=== PATIENT | male | born 1945 | race African-American/Black ===

== ENCOUNTER 2022-05-13 17:40 | Inpatient (IN) | payer BC ==
[~2022-05-13] VITALS: Ht 188 cm; Wt 154.2 kg
[2022-05-13] MEDS ORDERED: FUROSEMIDE 40MG/4ML VIAL IV ONE (18:45)
[2022-05-13 18:56] LABS: BASOPHILS % 0.6 % (0.0-2.0); EOSINOPHILS % 0.4 % (0.0-5.0); HEMATOCRIT. 35.7 % (42.0-52.0); HEMOGLOBIN. 11.6 g/dL (14.0-18.0); MEAN CORPUSCULAR HEMOGLOBIN 23.7 pg (28.0-32.0); MEAN CORPUSCULAR VOLUME 72.6 fL (80.0-94.0); MEAN PLATELET VOLUME 9.4 fl (7.4-10.4); MONOCYTES % 11.9 % (2.0-8.0); NEUTROPHILS % 62.1 % (40.0-76.0); PLATELET 167 x1000/uL (130-400); RED BLOOD CELL COUNT 4.91 mill/uL (4.7-6.1); RED CELL DISTRIBUTION WIDTH 17.6 % (11.6-14.6)
[2022-05-13 19:05] LABS: CHLORIDE 105 mEq/L (98-107)
[2022-05-13] MEDS ORDERED: DEXTROSE 50% WATER 50ML SYRINGE IV ONE (20:00)
[2022-05-14 02:52] LABS: CLARITY URINE CLEAR (CLEAR); COLOR URINE YELLOW (YELLOW)
[2022-05-14 02:53] LABS: KETONES URINE NEGATIVE (NEGATIVE); NITRITE URINE NEGATIVE (NEGATIVE); OCCULT BLOOD URINE TRACE (NEGATIVE); PROTEIN URINE 1+ (NEGATIVE)
[2022-05-14 02:54] LABS: LEUKOCYTE ESTERASE URINE NEGATIVE (NEGATIVE); UROBILINOGEN URINE 0.2 E.U./dL (0.2-1.0)
[2022-05-14 03:30] VITALS: BP 108/72
[2022-05-14] MEDS ORDERED: POTA-185 PO (03:52)
[2022-05-14] MEDS ORDERED: SACU1TAB7 PO (03:52)
[2022-05-14] MEDS ORDERED: ERGO1250 PO (03:52)
[2022-05-14] MEDS ORDERED: RIVA20TA PO (03:52)
[2022-05-14] MEDS ORDERED: FURO80TA3 PO (03:52)
[2022-05-14] MEDS ORDERED: CITA10TA88 PO (03:52)
[2022-05-14] MEDS ORDERED: AMI2 (03:52)
[2022-05-14] MEDS ORDERED: DEXTROSE 50% WATER 50ML SYRINGE IV PRN (05:15)
[2022-05-14] MEDS: INSULIN LISPRO 100 UNITS/ML SUBCUT SCH ×4 (05:35→21:00)
[2022-05-14] MEDS: BLOOD SUGAR DIAGNOSTIC STRIP TEST SCH ×4 (05:35→21:00)
[2022-05-14 08:00] VITALS: BP 117/73
[2022-05-14] MEDS ORDERED: FUROSEMIDE 40MG/4ML VIAL IVP SCH ×2 (09:00→17:00)
[2022-05-14 12:00] VITALS: BP 108/83
[2022-05-14 16:00] VITALS: BP 128/81
[2022-05-14] MEDS ORDERED: RIVAROXABAN 20 MG TABLET PO SCH (17:00)
[2022-05-14 17:04] LABS: HEMATOCRIT. 38.9 % (42.0-52.0); HEMOGLOBIN. 12.4 g/dL (14.0-18.0); MEAN CORPUSCULAR HEMOGLOBIN 23.4 pg (28.0-32.0); MEAN CORPUSCULAR VOLUME 73.3 fL (80.0-94.0); MEAN PLATELET VOLUME 9.5 fl (7.4-10.4); PLATELET 178 x1000/uL (130-400); RED BLOOD CELL COUNT 5.31 mill/uL (4.7-6.1); RED CELL DISTRIBUTION WIDTH 17.9 % (11.6-14.6)
[2022-05-14] MEDS: ENOXAPARIN 150MG/ML SYR SUBCUT SCH ×2 (17:55→22:01)
[2022-05-14 18:41] LABS: BG BASE EXCESS -3.3 mmol/L (-2.0-2.0); BG CARBOXYHEMOGLOBIN 1.2 % (0.5-1.5); BG DEOXYHEMOGLOBIN 7.5 % (0.0-5.0); BG FRACTION INSPIRED OXYGEN 21; BG HCO3 ACT 22.4 mmol/L (22.0-26.0); BG METHEMOGLOBIN 0.3 % (0.0-1.5); BG OXYGEN SATURATION 92.4 % (92.0-98.5); BG PCO2 42.4 mmHg (35.0-45.0); BG PO2 66.7 mmHg (75.0-100.0); BG SAMPLE SITE RIGHT BRACHIAL; BG TOTAL HEMOGLOBIN 13.6 g/dL (12.0-18.0); BG VENT MODE ROOM AIR
[2022-05-14 21:19] LABS: INR 1.6; PROTHROMBIN TIME 16.1 sec (9.6-11.0)
[2022-05-14 23:34] VITALS: BP 114/68
[2022-05-14 23:43] LABS: PLATELET ESTIMATE NORMAL
[2022-05-15 04:35] VITALS: BP 115/82
[2022-05-15] MEDS: BLOOD SUGAR DIAGNOSTIC STRIP TEST SCH ×4 (06:20→21:36)
[2022-05-15 06:31] LABS: BASOPHILS % 0.7 % (0.0-2.0); EOSINOPHILS % 1.1 % (0.0-5.0); HEMATOCRIT. 38.2 % (42.0-52.0); HEMOGLOBIN. 12.3 g/dL (14.0-18.0); LYMPHOCYTES % 20.2 % (20.0-50.0); MEAN CORPUSCULAR HEMOGLOBIN 23.2 pg (28.0-32.0); MEAN CORPUSCULAR VOLUME 72.2 fL (80.0-94.0); MEAN PLATELET VOLUME 9.9 fl (7.4-10.4); MONOCYTES % 11.3 % (2.0-8.0); NEUTROPHILS % 66.7 % (40.0-76.0); PLATELET 173 x1000/uL (130-400); RED CELL DISTRIBUTION WIDTH 17.7 % (11.6-14.6)
[2022-05-15 06:49] LABS: INR 1.4; PARTIAL THROMBOPLASTIN TIME 38.3 sec (23.4-31.0); PROTHROMBIN TIME 15.1 sec (9.6-11.0)
[2022-05-15] MEDS: INSULIN LISPRO 100 UNITS/ML SUBCUT SCH ×4 (07:35→21:00)
[2022-05-15 08:20] VITALS: BP 144/97
[2022-05-15] MEDS ORDERED: METOLAZONE 2.5MG TABLET PO SCH (09:00)
[2022-05-15] MEDS: AMIODARONE HCL 200 MG TABLET PO SCH (09:57)
[2022-05-15] MEDS: FUROSEMIDE 40MG/4ML VIAL IVP SCH ×2 (09:57→16:44)
[2022-05-15] MEDS: CITALOPRAM HYDROBROMIDE 10MG TABLET PO SCH (09:57)
[2022-05-15 12:00] VITALS: BP 111/66
[2022-05-15 14:32] LABS: HEPATITIS B SURFACE ANTIGEN NEGATIVE
[2022-05-15 16:00] VITALS: BP 127/70
[2022-05-15] MEDS: TAMSULOSIN HCL 0.4MG SR CAPSULE PO SCH (16:44)
[2022-05-15] MEDS: ENOXAPARIN 150MG/ML SYR SUBCUT SCH (18:00)
[2022-05-15 20:34] VITALS: BP 106/70
[2022-05-16] VITALS: BP 131/76
[2022-05-16 04:00] VITALS: BP 127/85
[2022-05-16] MEDS: ENOXAPARIN 150MG/ML SYR SUBCUT SCH ×2 (05:41→17:24)
[2022-05-16 06:49] LABS: BASOPHILS % 0.5 % (0.0-2.0); EOSINOPHILS % 0.7 % (0.0-5.0); HEMOGLOBIN. 12.3 g/dL (14.0-18.0); LYMPHOCYTES % 16.4 % (20.0-50.0); MEAN CORPUSCULAR HEMOGLOBIN 23.5 pg (28.0-32.0); MEAN CORPUSCULAR VOLUME 72.5 fL (80.0-94.0); MEAN PLATELET VOLUME 9.8 fl (7.4-10.4); MONOCYTES % 11.1 % (2.0-8.0); NEUTROPHILS % 71.3 % (40.0-76.0); PLATELET 184 x1000/uL (130-400); RED BLOOD CELL COUNT 5.24 mill/uL (4.7-6.1); RED CELL DISTRIBUTION WIDTH 17.7 % (11.6-14.6)
[2022-05-16] MEDS: BLOOD SUGAR DIAGNOSTIC STRIP TEST SCH ×4 (07:30→21:00)
[2022-05-16] MEDS: INSULIN LISPRO 100 UNITS/ML SUBCUT SCH ×4 (08:10→21:00)
[2022-05-16] MEDS ORDERED: LIDOCAINE HCL 1% 10 MG/ML 10ML VIAL ONE (08:16)
[2022-05-16] MEDS ORDERED: SODIUM BICARBONATE 4% (2.4MEQ) 5ML VIAL IV ONE (08:16)
[2022-05-16] MEDS: AMIODARONE HCL 200 MG TABLET PO SCH (10:23)
[2022-05-16] MEDS: CITALOPRAM HYDROBROMIDE 10MG TABLET PO SCH (10:23)
[2022-05-16] MEDS: FUROSEMIDE 40MG/4ML VIAL IVP SCH ×2 (10:23→17:24)
[2022-05-16] MEDS: TAMSULOSIN HCL 0.4MG SR CAPSULE PO SCH (10:24)
[2022-05-16 12:00] VITALS: BP 115/74
[2022-05-16 16:00] VITALS: BP 113/61
[2022-05-16 20:00] VITALS: BP 123/73
[2022-05-17] VITALS: BP 105/73
[2022-05-17 04:00] VITALS: BP 123/73
[2022-05-17 05:40] LABS: BASOPHILS % 0.4 % (0.0-2.0); EOSINOPHILS % 0.5 % (0.0-5.0); HEMATOCRIT. 38.6 % (42.0-52.0); HEMOGLOBIN. 12.5 g/dL (14.0-18.0); LYMPHOCYTES % 14.3 % (20.0-50.0); MEAN CORPUSCULAR HEMOGLOBIN 23.5 pg (28.0-32.0); MEAN CORPUSCULAR VOLUME 72.5 fL (80.0-94.0); MEAN PLATELET VOLUME 9.8 fl (7.4-10.4); MONOCYTES % 12.7 % (2.0-8.0); NEUTROPHILS % 72.1 % (40.0-76.0); PLATELET 176 x1000/uL (130-400); RED BLOOD CELL COUNT 5.33 mill/uL (4.7-6.1); RED CELL DISTRIBUTION WIDTH 17.8 % (11.6-14.6)
[2022-05-17] MEDS: ENOXAPARIN 150MG/ML SYR SUBCUT SCH (06:28)
[2022-05-17] MEDS: BLOOD SUGAR DIAGNOSTIC STRIP TEST SCH ×3 (07:40→17:24)
[2022-05-17 08:00] VITALS: BP 138/82
[2022-05-17] MEDS: INSULIN LISPRO 100 UNITS/ML SUBCUT SCH ×2 (08:10→13:10)
[2022-05-17] MEDS: TAMSULOSIN HCL 0.4MG SR CAPSULE PO SCH (08:57)
[2022-05-17] MEDS: FUROSEMIDE 40MG/4ML VIAL IVP SCH (08:58)
[2022-05-17] MEDS: CITALOPRAM HYDROBROMIDE 10MG TABLET PO SCH (08:58)
[2022-05-17] MEDS: AMIODARONE HCL 200 MG TABLET PO SCH (08:58)
[2022-05-17] MEDS ORDERED: FURO80TA3 PO (11:45)
[2022-05-17 12:00] VITALS: BP 122/88
[2022-05-17] MEDS ORDERED: FUROSEMIDE 40MG TABLET PO SCH (18:00)
== END 2022-05-17 18:23 | disposition home or self-care (01) | DRG 291 ==
LOC: ER 17:40 → EDBEDREQ 18:46 → MICUSO 05-14 01:47 → EDBEDREQ 05-14 01:52 → 7WST 05-14 03:32
PROVIDERS: ADMIT Internal Medicine; ATTEND Internal Medicine
PROC: 0W9G3ZZ Drainage of Peritoneal Cavity, Percutaneous Approach (ICD-10-PCS; principal; 2022-05-16)
DX: I13.0 Hypertensive heart and chronic kidney disease with heart failure and stage 1 through stage 4 chronic kidney disease, or unspecified chronic kidney disease (principal); I50.23 Acute on chronic systolic (congestive) heart failure; J96.00 Acute respiratory failure, unspecified whether with hypoxia or hypercapnia; I48.19 Other persistent atrial fibrillation; E44.1 Mild protein-calorie malnutrition; R18.8 Other ascites; N17.9 Acute kidney failure, unspecified; Z68.41 Body mass index [BMI] 40.0-44.9, adult; Z20.822 Contact with and (suspected) exposure to COVID-19; K74.60 Unspecified cirrhosis of liver; N18.9 Chronic kidney disease, unspecified; E11.649 Type 2 diabetes mellitus with hypoglycemia without coma; E11.22 Type 2 diabetes mellitus with diabetic chronic kidney disease; I50.82 Biventricular heart failure; I48.91 Unspecified atrial fibrillation; G47.33 Obstructive sleep apnea (adult) (pediatric); I49.3 Ventricular premature depolarization; E66.9 Obesity, unspecified; N40.0 Benign prostatic hyperplasia without lower urinary tract symptoms; Z79.899 Other long term (current) drug therapy
CPT/HCPCS: 36415; 36600; 49083; 71045; 74176; 76705; 76770; 80048; 80053; 81003; 82040; 82375; 82805; 82962; 83036; 83615; 83735; 83880; 84153; 84484; 85025; 86705; 86709; 86803; 87340; 87426; 88108; 93005; 93306; 94660; 99285; J1650; J1815; J1940; J3490; G0103

== ENCOUNTER 2022-06-08 05:44 | Inpatient (IN) | payer BC ==
[~2022-06-08] VITALS: Ht 188 cm; Wt 151.8 kg
[~2022-06-08 05:44] MED LIST: AMI2; CITA10TA88 PO; ERGO1250 PO; FURO80TA3 PO; POTA-185 PO; RIVA20TA PO; SACU1TAB7 PO
[2022-06-08 06:55] LABS: BASOPHILS % 0.5 % (0.0-2.0); EOSINOPHILS % 0.5 % (0.0-5.0); HEMATOCRIT. 38.3 % (42.0-52.0); HEMOGLOBIN. 12.4 g/dL (14.0-18.0); LYMPHOCYTES % 17.2 % (20.0-50.0); MEAN CORPUSCULAR HEMOGLOBIN 23.6 pg (28.0-32.0); MEAN CORPUSCULAR VOLUME 72.9 fL (80.0-94.0); MEAN PLATELET VOLUME 9.5 fl (7.4-10.4); MONOCYTES % 10.7 % (2.0-8.0); NEUTROPHILS % 71.1 % (40.0-76.0); PLATELET 200 x1000/uL (130-400); RED BLOOD CELL COUNT 5.26 mill/uL (4.7-6.1); RED CELL DISTRIBUTION WIDTH 17.9 % (11.6-14.6)
[2022-06-08 07:32] LABS: INR 1.6; PARTIAL THROMBOPLASTIN TIME 34.7 sec (23.4-31.0); PROTHROMBIN TIME 16.1 sec (9.6-11.0)
[2022-06-08 07:37] LABS: CHLORIDE 100 mEq/L (98-107)
[2022-06-08 10:57] LABS: CLARITY URINE CLEAR (CLEAR); COLOR URINE DARK YELLOW (YELLOW); KETONES URINE TRACE (NEGATIVE); LEUKOCYTE ESTERASE URINE NEGATIVE (NEGATIVE); NITRITE URINE NEGATIVE (NEGATIVE); OCCULT BLOOD URINE NEGATIVE (NEGATIVE); PROTEIN URINE 2+ (NEGATIVE); SPECIFIC GRAVITY URINE 1.023 (1.005-1.030)
[2022-06-08 23:15] VITALS: BP 152/89
[2022-06-09] VITALS: BP 152/89
[2022-06-09 04:00] VITALS: BP 99/66
[2022-06-09] MEDS ORDERED: FUROSEMIDE 40MG/4ML VIAL IVP SCH ×3 (04:00→09:00)
[2022-06-09 08:00] VITALS: BP 103/60
[2022-06-09] MEDS ORDERED: LIDOCAINE HCL 1% 30ML VIAL (10MG/ML) ONE (09:35)
[2022-06-09] MEDS ORDERED: SODIUM BICARBONATE 4% (2.4MEQ) 5ML VIAL IV ONE (09:36)
[2022-06-09 12:00] VITALS: BP 114/52
[2022-06-09] MEDS: AMIODARONE HCL 200 MG TABLET PO SCH ×2 (13:09→18:21)
[2022-06-09] MEDS: CITALOPRAM HYDROBROMIDE 10MG TABLET PO SCH (13:10)
[2022-06-09 16:00] VITALS: BP 121/62
[2022-06-09 17:22] LABS: BASOPHILS % 0.5 % (0.0-2.0); EOSINOPHILS % 0.5 % (0.0-5.0); HEMATOCRIT. 35.9 % (42.0-52.0); HEMOGLOBIN. 11.5 g/dL (14.0-18.0); LYMPHOCYTES % 14.2 % (20.0-50.0); MEAN CORPUSCULAR HEMOGLOBIN 23.4 pg (28.0-32.0); MEAN CORPUSCULAR VOLUME 72.7 fL (80.0-94.0); MEAN PLATELET VOLUME 9.7 fl (7.4-10.4); MONOCYTES % 12.7 % (2.0-8.0); NEUTROPHILS % 72.1 % (40.0-76.0); PLATELET 191 x1000/uL (130-400); RED BLOOD CELL COUNT 4.93 mill/uL (4.7-6.1)
[2022-06-09 20:00] VITALS: BP 101/69
[2022-06-09] MEDS: FUROSEMIDE 40MG/4ML VIAL IVP SCH (20:51)
[2022-06-09] MEDS: SACUBITRIL/VALSARTAN 49MG/51MG TABLET PO SCH (21:28)
[2022-06-10] VITALS: BP 102/54
[2022-06-10 08:00] VITALS: BP 126/95
[2022-06-10] MEDS: FUROSEMIDE 40MG/4ML VIAL IVP SCH (09:25)
[2022-06-10] MEDS: CITALOPRAM HYDROBROMIDE 10MG TABLET PO SCH (09:26)
[2022-06-10] MEDS: AMIODARONE HCL 200 MG TABLET PO SCH (09:26)
[2022-06-10] MEDS: SACUBITRIL/VALSARTAN 49MG/51MG TABLET PO SCH (09:26)
[2022-06-10] MEDS ORDERED: POTA-185 PO (10:34)
[2022-06-10] MEDS ORDERED: FURO80TA3 PO (10:34)
[2022-06-10 12:00] VITALS: BP 100/69
[2022-06-10 15:11] VITALS: BP 100/68
== END 2022-06-10 15:30 | disposition home or self-care (01) | DRG 291 ==
LOC: ER 05:55 → 3WST 16:49 → EDBEDREQTM 17:35 → EDBEDREQ 17:35 → ENRESERV 19:03 → CANRESERV 19:03 → ENRESERV 22:12
PROVIDERS: ADMIT Internal Medicine; ATTEND Internal Medicine
PROC: 0W9G3ZZ Drainage of Peritoneal Cavity, Percutaneous Approach (ICD-10-PCS; principal; 2022-06-09)
DX: I11.0 Hypertensive heart disease with heart failure (principal); I50.21 Acute systolic (congestive) heart failure; R18.8 Other ascites; E11.22 Type 2 diabetes mellitus with diabetic chronic kidney disease; E11.40 Type 2 diabetes mellitus with diabetic neuropathy, unspecified; Z20.822 Contact with and (suspected) exposure to COVID-19; I48.91 Unspecified atrial fibrillation; N18.9 Chronic kidney disease, unspecified; G47.33 Obstructive sleep apnea (adult) (pediatric); Z79.899 Other long term (current) drug therapy; K74.60 Unspecified cirrhosis of liver
CPT/HCPCS: 36415; 49083; 80048; 80053; 81003; 82140; 82962; 83880; 84484; 85025; 87426; 93005; 99285; C9803; J1940; J3490

== ENCOUNTER 2022-06-12 06:47 | Emergency (ER) | payer BC ==
[~2022-06-12] VITALS: Ht 198.1 cm; Wt 152.0 kg
[2022-06-12 09:58] LABS: HEMATOCRIT. 38.5 % (42.0-52.0); HEMOGLOBIN. 12.4 g/dL (14.0-18.0); MEAN CORPUSCULAR HEMOGLOBIN 23.4 pg (28.0-32.0); MEAN CORPUSCULAR VOLUME 72.9 fL (80.0-94.0); MEAN PLATELET VOLUME 9.9 fl (7.4-10.4); PLATELET 204 x1000/uL (130-400); RED BLOOD CELL COUNT 5.29 mill/uL (4.7-6.1)
[2022-06-12 10:14] LABS: CHLORIDE 105 mEq/L (98-107)
[2022-06-12 10:41] LABS: CLARITY URINE CLEAR (CLEAR); COLOR URINE YELLOW (YELLOW); KETONES URINE NEGATIVE (NEGATIVE); LEUKOCYTE ESTERASE URINE NEGATIVE (NEGATIVE); NITRITE URINE NEGATIVE (NEGATIVE); OCCULT BLOOD URINE NEGATIVE (NEGATIVE); PH URINE 5.5 (4.5-8.0); PROTEIN URINE 2+ (NEGATIVE); SPECIFIC GRAVITY URINE 1.019 (1.005-1.030)
[2022-06-12 10:47] LABS: PLATELET ESTIMATE NORMAL
[2022-06-12 13:15] VITALS: BP 109/83
[2022-06-12] MEDS ORDERED: LIDOCAINE HCL 1% 20ML VIAL (Pyxis) INJ INFIL ONE (15:15)
== END 2022-06-12 16:32 | disposition home or self-care (01) ==
LOC: ER 06:47
DX: T81.30XA Disruption of wound, unspecified, initial encounter (principal); I48.91 Unspecified atrial fibrillation; E11.9 Type 2 diabetes mellitus without complications; I50.9 Heart failure, unspecified; Y83.8 Other surgical procedures as the cause of abnormal reaction of the patient, or of later complication, without mention of misadventure at the time of the procedure; Y92.9 Unspecified place or not applicable
CPT/HCPCS: 12001; 36415; 80053; 81003; 83605; 84484; 85025; 93005; 99284

== ENCOUNTER 2022-06-23 15:56 | Inpatient (IN) | payer BC ==
[~2022-06-23] VITALS: Ht 198.1 cm; Wt 150.3 kg
[2022-06-23] MEDS ORDERED: ASPIRIN 81MG TABLET PO ONE (16:45)
[2022-06-23] MEDS ORDERED: FUROSEMIDE 40MG/4ML VIAL IV ONE (16:45)
[2022-06-23] MEDS ORDERED: NITROGLYCERIN OINT 1GM/INCH UDPKT TD ONE (16:45)
[2022-06-23] MEDS ORDERED: MORPHINE SULFATE 4 MG/ML CPJ (NOT FOR IM USE) IV STA (17:02)
[2022-06-23] MEDS ORDERED: ONDANSETRON HCL 4MG/2ML INJ IV STA (17:02)
[2022-06-23 17:18] LABS: HEMATOCRIT. 37.5 % (42.0-52.0); HEMOGLOBIN. 12.1 g/dL (14.0-18.0); MEAN CORPUSCULAR HEMOGLOBIN 23.5 pg (28.0-32.0); MEAN CORPUSCULAR VOLUME 72.5 fL (80.0-94.0); MEAN PLATELET VOLUME 9.8 fl (7.4-10.4); PLATELET 179 x1000/uL (130-400); RED BLOOD CELL COUNT 5.16 mill/uL (4.7-6.1); RED CELL DISTRIBUTION WIDTH 17.3 % (11.6-14.6)
[2022-06-23 17:27] LABS: CHLORIDE 102 mEq/L (98-107)
[2022-06-23 17:28] LABS: INR 1.8; PARTIAL THROMBOPLASTIN TIME 38.9 sec (23.4-31.0); PROTHROMBIN TIME 18.8 sec (9.6-11.0)
[2022-06-23 18:48] LABS: PLATELET ESTIMATE NORMAL
[2022-06-24 00:14] VITALS: BP 104/60
[2022-06-24] MEDS ORDERED: ASPI-1079 PO (02:05)
[2022-06-24] MEDS ORDERED: INSU100V3 SUBCUT (02:05)
[2022-06-24 02:30] VITALS: BP 104/66
[2022-06-24] MEDS ORDERED: DEXTROSE 50% WATER 50ML SYRINGE IV PRN (03:30)
[2022-06-24] MEDS: BLOOD SUGAR DIAGNOSTIC STRIP TEST SCH ×4 (05:31→20:46)
[2022-06-24] MEDS: INSULIN LISPRO 100 UNITS/ML SUBCUT SCH ×4 (05:31→20:46)
[2022-06-24 08:00] VITALS: BP 131/53
[2022-06-24] MEDS: ASPIRIN 81MG TABLET PO SCH (08:26)
[2022-06-24] MEDS: AMIODARONE HCL 200 MG TABLET PO SCH (08:54)
[2022-06-24] MEDS: CITALOPRAM HYDROBROMIDE 10MG TABLET PO SCH (08:54)
[2022-06-24] MEDS ORDERED: FUROSEMIDE 40MG/4ML VIAL IVP SCH (09:00)
[2022-06-24] MEDS ORDERED: FUROSEMIDE 40MG/4ML VIAL IVP NR (11:00)
[2022-06-24 12:00] VITALS: BP 118/60
[2022-06-24 15:26] LABS: CLARITY URINE CLEAR (CLEAR); COLOR URINE YELLOW (YELLOW); KETONES URINE NEGATIVE (NEGATIVE); LEUKOCYTE ESTERASE URINE NEGATIVE (NEGATIVE); NITRITE URINE NEGATIVE (NEGATIVE); OCCULT BLOOD URINE NEGATIVE (NEGATIVE); PROTEIN URINE 1+ (NEGATIVE); SPECIFIC GRAVITY URINE 1.013 (1.005-1.030); UROBILINOGEN URINE 0.2 E.U./dL (0.2-1.0)
[2022-06-24 16:30] VITALS: BP 120/91
[2022-06-24] MEDS ORDERED: RIVAROXABAN 20 MG TABLET PO SCH (17:00)
[2022-06-24] MEDS: RIVAROXABAN 15 MG TABLET PO SCH (17:00)
[2022-06-24] MEDS: FUROSEMIDE 100MG/10ML VIAL IVP SCH (18:12)
[2022-06-24 20:00] VITALS: BP 122/79
[2022-06-25] VITALS: BP 122/71
[2022-06-25 04:00] VITALS: BP 103/65
[2022-06-25] MEDS: BLOOD SUGAR DIAGNOSTIC STRIP TEST SCH ×4 (05:26→21:39)
[2022-06-25] MEDS: INSULIN LISPRO 100 UNITS/ML SUBCUT SCH ×4 (05:39→21:41)
[2022-06-25 08:00] VITALS: BP 121/100
[2022-06-25] MEDS: AMIODARONE HCL 200 MG TABLET PO SCH (09:06)
[2022-06-25] MEDS: ASPIRIN 81MG TABLET PO SCH (09:06)
[2022-06-25] MEDS: CITALOPRAM HYDROBROMIDE 10MG TABLET PO SCH (09:06)
[2022-06-25] MEDS: FUROSEMIDE 100MG/10ML VIAL IVP SCH ×2 (09:07→17:28)
[2022-06-25] MEDS ORDERED: SODIUM BICARBONATE 4% (2.4MEQ) 5ML VIAL IV ONE (10:09)
[2022-06-25] MEDS ORDERED: LIDOCAINE HCL 1% 30ML VIAL (10MG/ML) ONE (10:09)
[2022-06-25 11:06] LABS: BASOPHILS % 0.5 % (0.0-2.0); EOSINOPHILS % 0.4 % (0.0-5.0); HEMATOCRIT. 39.5 % (42.0-52.0); HEMOGLOBIN. 12.8 g/dL (14.0-18.0); LYMPHOCYTES % 12.6 % (20.0-50.0); MEAN CORPUSCULAR HEMOGLOBIN 23.7 pg (28.0-32.0); MEAN CORPUSCULAR VOLUME 73.3 fL (80.0-94.0); MONOCYTES % 9.9 % (2.0-8.0); NEUTROPHILS % 76.6 % (40.0-76.0); PLATELET 200 x1000/uL (130-400); RED BLOOD CELL COUNT 5.38 mill/uL (4.7-6.1)
[2022-06-25 12:00] VITALS: BP 117/72
[2022-06-25 15:37] LABS: CHLORIDE 97 mEq/L (98-107)
[2022-06-25 16:00] VITALS: BP 128/68
[2022-06-25 16:04] LABS: CREATINE KINASE 222 IU/L (39-308); PHOSPHORUS 4.5 mg/dL (2.5-4.9)
[2022-06-25] MEDS: RIVAROXABAN 15 MG TABLET PO SCH (17:28)
[2022-06-25 20:00] VITALS: BP 104/69
[2022-06-26] VITALS: BP 101/63
[2022-06-26 04:00] VITALS: BP 103/70
[2022-06-26] MEDS: INSULIN LISPRO 100 UNITS/ML SUBCUT SCH ×4 (06:03→21:11)
[2022-06-26] MEDS: BLOOD SUGAR DIAGNOSTIC STRIP TEST SCH ×4 (06:03→21:18)
[2022-06-26 06:32] LABS: PHOSPHORUS 4.2 mg/dL (2.5-4.9)
[2022-06-26 06:45] LABS: BASOPHILS % 0.7 % (0.0-2.0); EOSINOPHILS % 0.9 % (0.0-5.0); HEMATOCRIT. 36.4 % (42.0-52.0); HEMOGLOBIN. 11.8 g/dL (14.0-18.0); LYMPHOCYTES % 15.8 % (20.0-50.0); MEAN CORPUSCULAR HEMOGLOBIN 23.4 pg (28.0-32.0); MEAN CORPUSCULAR VOLUME 72.5 fL (80.0-94.0); MEAN PLATELET VOLUME 10.1 fl (7.4-10.4); MONOCYTES % 12.7 % (2.0-8.0); NEUTROPHILS % 69.9 % (40.0-76.0); PLATELET 177 x1000/uL (130-400); RED BLOOD CELL COUNT 5.03 mill/uL (4.7-6.1); RED CELL DISTRIBUTION WIDTH 17.9 % (11.6-14.6)
[2022-06-26 08:00] VITALS: BP 117/73
[2022-06-26] MEDS: ASPIRIN 81MG TABLET PO SCH (09:27)
[2022-06-26] MEDS: CITALOPRAM HYDROBROMIDE 10MG TABLET PO SCH (09:27)
[2022-06-26] MEDS: AMIODARONE HCL 200 MG TABLET PO SCH (09:27)
[2022-06-26] MEDS: FUROSEMIDE 100MG/10ML VIAL IVP SCH ×3 (09:27→17:17)
[2022-06-26 12:00] VITALS: BP 108/70
[2022-06-26] MEDS: METOLAZONE 2.5MG TABLET PO SCH (13:24)
[2022-06-26 16:00] VITALS: BP 112/69
[2022-06-26] MEDS: RIVAROXABAN 15 MG TABLET PO SCH (17:17)
[2022-06-26 20:00] VITALS: BP 115/78
[2022-06-26] MEDS: CARVEDILOL 6.25 MG TABLET PO SCH (21:10)
[2022-06-27] VITALS: BP 124/85
[2022-06-27 04:00] VITALS: BP 110/81
[2022-06-27 06:34] LABS: BASOPHILS % 0.3 % (0.0-2.0); EOSINOPHILS % 1.1 % (0.0-5.0); HEMATOCRIT. 35.7 % (42.0-52.0); HEMOGLOBIN. 11.5 g/dL (14.0-18.0); LYMPHOCYTES % 14.4 % (20.0-50.0); MEAN CORPUSCULAR HEMOGLOBIN 23.3 pg (28.0-32.0); MEAN CORPUSCULAR VOLUME 72.4 fL (80.0-94.0); MEAN PLATELET VOLUME 10.1 fl (7.4-10.4); MONOCYTES % 10.9 % (2.0-8.0); NEUTROPHILS % 73.3 % (40.0-76.0); PLATELET 192 x1000/uL (130-400); RED BLOOD CELL COUNT 4.93 mill/uL (4.7-6.1); RED CELL DISTRIBUTION WIDTH 17.8 % (11.6-14.6)
[2022-06-27 06:44] LABS: PHOSPHORUS 3.5 mg/dL (2.5-4.9)
[2022-06-27] MEDS: INSULIN LISPRO 100 UNITS/ML SUBCUT SCH ×4 (07:34→21:15)
[2022-06-27] MEDS: BLOOD SUGAR DIAGNOSTIC STRIP TEST SCH ×4 (07:34→21:23)
[2022-06-27 08:00] VITALS: BP 124/76
[2022-06-27] MEDS: METOLAZONE 2.5MG TABLET PO SCH (08:55)
[2022-06-27] MEDS: CITALOPRAM HYDROBROMIDE 10MG TABLET PO SCH (08:56)
[2022-06-27] MEDS: ASPIRIN 81MG TABLET PO SCH (08:57)
[2022-06-27] MEDS: AMIODARONE HCL 200 MG TABLET PO SCH (08:58)
[2022-06-27] MEDS: FUROSEMIDE 100MG/10ML VIAL IVP SCH ×3 (08:58→17:55)
[2022-06-27] MEDS: CARVEDILOL 6.25 MG TABLET PO SCH ×2 (09:10→21:13)
[2022-06-27 12:00] VITALS: BP 97/57
[2022-06-27] MEDS ORDERED: POTASSIUM CHLORIDE INJ 40 MEQ in DEXT 5% WATER 250 ML IV ONE (12:00)
[2022-06-27 16:00] VITALS: BP 101/62
[2022-06-27] MEDS: RIVAROXABAN 15 MG TABLET PO SCH (17:55)
[2022-06-27 20:00] VITALS: BP 121/70
[2022-06-28] VITALS: BP 100/70
[2022-06-28 04:00] VITALS: BP 116/71
[2022-06-28 05:49] LABS: BASOPHILS % 0.4 % (0.0-2.0); EOSINOPHILS % 1.6 % (0.0-5.0); HEMATOCRIT. 36.9 % (42.0-52.0); HEMOGLOBIN. 12.2 g/dL (14.0-18.0); LYMPHOCYTES % 14.5 % (20.0-50.0); MEAN CORPUSCULAR HEMOGLOBIN 23.7 pg (28.0-32.0); MEAN CORPUSCULAR VOLUME 71.7 fL (80.0-94.0); MEAN PLATELET VOLUME 10.3 fl (7.4-10.4); MONOCYTES % 10.4 % (2.0-8.0); NEUTROPHILS % 73.1 % (40.0-76.0); PLATELET 209 x1000/uL (130-400); RED BLOOD CELL COUNT 5.15 mill/uL (4.7-6.1); RED CELL DISTRIBUTION WIDTH 17.5 % (11.6-14.6)
[2022-06-28] MEDS: BLOOD SUGAR DIAGNOSTIC STRIP TEST SCH ×2 (06:29→11:52)
[2022-06-28] MEDS: INSULIN LISPRO 100 UNITS/ML SUBCUT SCH ×2 (06:33→12:57)
[2022-06-28 08:00] VITALS: BP 119/74
[2022-06-28 09:23] LABS: PHOSPHORUS 3.3 mg/dL (2.5-4.9)
[2022-06-28] MEDS: ASPIRIN 81MG TABLET PO SCH (09:27)
[2022-06-28] MEDS: AMIODARONE HCL 200 MG TABLET PO SCH (09:27)
[2022-06-28] MEDS: METOLAZONE 2.5MG TABLET PO SCH (09:27)
[2022-06-28] MEDS: CITALOPRAM HYDROBROMIDE 10MG TABLET PO SCH (09:27)
[2022-06-28] MEDS: CARVEDILOL 6.25 MG TABLET PO SCH (09:28)
[2022-06-28] MEDS: FUROSEMIDE 100MG/10ML VIAL IVP SCH ×2 (09:28→12:56)
[2022-06-28 12:00] VITALS: BP 108/66
[2022-06-28 16:00] VITALS: BP 102/57
[2022-06-28 16:02] VITALS: BP 102/57
[2022-06-28] MEDS ORDERED: RIVAROXABAN 20 MG TABLET PO SCH (17:00)
== END 2022-06-28 17:42 | disposition home or self-care (01) | DRG 291 ==
LOC: ER 16:21 → 8WST 22:13 → EDBEDREQ 22:20
PROVIDERS: ADMIT Internal Medicine; ATTEND Internal Medicine
PROC: 0W9G3ZZ Drainage of Peritoneal Cavity, Percutaneous Approach (ICD-10-PCS; principal; 2022-06-25)
DX: I13.0 Hypertensive heart and chronic kidney disease with heart failure and stage 1 through stage 4 chronic kidney disease, or unspecified chronic kidney disease (principal); I50.23 Acute on chronic systolic (congestive) heart failure; I48.20 Chronic atrial fibrillation, unspecified; N17.9 Acute kidney failure, unspecified; R18.8 Other ascites; K74.60 Unspecified cirrhosis of liver; I42.0 Dilated cardiomyopathy; D64.9 Anemia, unspecified; E11.22 Type 2 diabetes mellitus with diabetic chronic kidney disease; N18.30 Chronic kidney disease, stage 3 unspecified; E78.5 Hyperlipidemia, unspecified; I08.1 Rheumatic disorders of both mitral and tricuspid valves; Z20.822 Contact with and (suspected) exposure to COVID-19; R79.1 Abnormal coagulation profile; Z79.01 Long term (current) use of anticoagulants; Z82.49 Family history of ischemic heart disease and other diseases of the circulatory system; Z83.3 Family history of diabetes mellitus
CPT/HCPCS: 36415; 49083; 71045; 76700; 80048; 80053; 81003; 82550; 82962; 83735; 83880; 84100; 84484; 85025; 87426; 93005; 93923; 93970; 97116; 97162; 99285; C1893; J1815; J1940; J2270; J2405; J3480; J3490; J7060; A4315

== ENCOUNTER 2024-09-12 06:19 | Inpatient (IN) | payer OTHER, MEDICARE ==
[~2024-09-12] VITALS: Ht 185.4 cm; Wt 128.8 kg
[~2024-09-12 06:19] MED LIST changes: +ASPI-1079 PO; +INSU100V3 SUBCUT
[2024-09-12] MEDS: SODIUM CHLORIDE 0.9% (SEPSIS BOLUS) IV ONE (07:02)
[2024-09-12 07:26] LABS: POTASSIUM 4.8 mEq/L (3.5-5.1)
[2024-09-12] MEDS: PIPERACILLIN/TAZO 3.375G/50ML 50 ML IV ONE (07:32)
[2024-09-12 07:46] LABS: INR 1.2; PROTHROMBIN TIME 12.8 sec (9.6-11.0)
[2024-09-12] MEDS: VANCOMYCIN 1G PREMIX 200 ML IV ONE (08:03)
[2024-09-12 08:24] LABS: BASOPHILS % 0.4 % (0.0-2.0); DIFFERENTIAL COMMENT 0; HEMATOCRIT. 39.8 % (42.0-52.0); HEMOGLOBIN. 12.6 g/dL (14.0-18.0); MEAN CORPUSCULAR HGB CONC 31.8 g/dL (31.0-37.0); MEAN CORPUSCULAR VOLUME 75.5 fL (80.0-94.0); MEAN PLATELET VOLUME 9.7 fl (7.4-10.4); MONOCYTES % 8.3 % (2.0-8.0); NEUTROPHILS % 81.3 % (40.0-76.0); PLATELET 220 x1000/uL (130-400); RED BLOOD CELL COUNT 5.27 mill/uL (4.7-6.1); RED CELL DISTRIBUTION WIDTH 16.6 % (11.6-14.6); WHITE BLOOD COUNT 7.2 x1000/uL (4.5-11.0)
[2024-09-12] MEDS: SODIUM BICARBONATE 4% 2.4MEQ/5ML VIAL IV ONE (08:31)
[2024-09-12 08:54] LABS: INFLUENZA TYPE A Presumptive Negative (Pres. Neg.)
[2024-09-12 08:56] LABS: INFLUENZA TYPE B Presumptive Negative (Pres. Neg.)
[2024-09-12] MEDS: LIDOCAINE HCL 1% 10 MG/ML 10ML VIAL ONE (09:02)
[2024-09-12] MEDS ORDERED: IPRATROPIUM/ALBUTEROL 0.5-3(2.5)MG/3ML NEB NEB PRN (11:00)
[2024-09-12] MEDS: FUROSEMIDE 40MG/4ML VIAL IVP SCH (11:00)
[2024-09-12] MEDS ORDERED: MAGNESIUM/ALUMINUM HYDROXIDE/SIMETHICONE 30ML UDC PO PRN (11:00)
[2024-09-12] MEDS ORDERED: ENOXAPARIN 40MG/0.4ML SYR SUBCUT SCH (11:00)
[2024-09-12] MEDS ORDERED: CLONIDINE 0.1MG TABLET PO PRN (11:00)
[2024-09-12] MEDS ORDERED: ONDANSETRON HCL 4MG/2ML INJ IV PRN (11:00)
[2024-09-12] MEDS: AMIODARONE 200MG TABLET PO SCH (11:21)
[2024-09-12] MEDS: PANTOPRAZOLE SODIUM 40 MG/VIAL IV SCH (11:22)
[2024-09-12] MEDS: ALBUMIN HUMAN 12.5G/250ML (5%) IV NR (11:22)
[2024-09-12 13:07] LABS: BODY FLUID RBC 12750 /cu mm (0-2000); BODY FLUID WBC 26 /cu mm (0-200)
[2024-09-12] MEDS: CITALOPRAM HYDROBROMIDE 10MG TABLET PO SCH (14:19)
[2024-09-12] MEDS: ACETAMINOPHEN 325MG TABLET PO PRN (14:20)
[2024-09-12 16:00] VITALS: BP 124/79; PULSE 91; RESP 18; TEMP 36.3; O2SAT 97
[2024-09-12] MEDS: RIVAROXABAN 15 MG TABLET PO SCH (17:52)
[2024-09-12 17:58] VITALS: BP 123/74; PULSE 93; RESP 14; TEMP 36.7
[2024-09-12 20:00] VITALS: BP 105/72; PULSE 86; RESP 20; TEMP 36.4; O2SAT 98
[2024-09-12] MEDS ORDERED: ZOLPIDEM TARTRATE 5MG TABLET PO PRN (21:00)
[2024-09-12] MEDS ORDERED: SACUBITRIL/VALSARTAN 49MG/51MG TABLET PO SCH (21:00)
[2024-09-12] MEDS ORDERED: NALOXONE HCL 0.4MG/ML VIAL IV PRN (22:00)
[2024-09-12] MEDS: SACUBITRIL/VALSARTAN 49MG/51MG TABLET PO SCH (23:37)
[2024-09-13] VITALS: BP 109/70; PULSE 81; RESP 16; TEMP 36.2; O2SAT 97
[2024-09-13 04:00] VITALS: BP 109/65; PULSE 78; RESP 18; TEMP 36.9; O2SAT 96
[2024-09-13 07:41] LABS: BASOPHILS % 0.7 % (0.0-2.0); DIFFERENTIAL COMMENT 0; EOSINOPHILS % 0.6 % (0.0-5.0); HEMATOCRIT. 42.8 % (42.0-52.0); HEMOGLOBIN. 13.2 g/dL (14.0-18.0); LYMPHOCYTES % 12.4 % (20.0-50.0); MEAN CORPUSCULAR VOLUME 74.5 fL (80.0-94.0); MEAN PLATELET VOLUME 9.9 fl (7.4-10.4); MONOCYTES % 10.7 % (2.0-8.0); NEUTROPHILS % 75.6 % (40.0-76.0); PLATELET 228 x1000/uL (130-400); RED BLOOD CELL COUNT 5.74 mill/uL (4.7-6.1); RED CELL DISTRIBUTION WIDTH 17.8 % (11.6-14.6); WHITE BLOOD COUNT 6.7 x1000/uL (4.5-11.0)
[2024-09-13 07:49] LABS: POTASSIUM 4.7 mEq/L (3.5-5.1)
[2024-09-13 07:51] LABS: CALCIUM 8.7 mg/dL (8.7-10.4)
[2024-09-13 07:55] LABS: CREATININE 1.8 mg/dL (0.6-1.3)
[2024-09-13 07:56] LABS: ALANINE AMINOTRANSFERASE 9 IU/L (10-49)
[2024-09-13 07:57] LABS: ASPARTATE AMINOTRANSFERASE 21 IU/L (<34); BILIRUBIN DIRECT 0.5 mg/dL (<=3.0); PROTEIN TOTAL 6.3 g/dL (6.0-8.3)
[2024-09-13 08:00] VITALS: BP 133/55; PULSE 93; RESP 16; TEMP 36.3; O2SAT 95
[2024-09-13] MEDS ORDERED: RIVAROXABAN 20 MG TABLET PO SCH (09:00)
[2024-09-13] MEDS: ASPIRIN 81MG TABLET PO SCH (09:29)
[2024-09-13 12:00] VITALS: BP 114/45; PULSE 52; RESP 18; TEMP 36; O2SAT 99
[2024-09-13 16:00] VITALS: BP 122/51; PULSE 88; RESP 18; TEMP 36.6; O2SAT 99
[2024-09-13] MEDS: CEFTRIAXONE 1GM/50ML 50 ML IV SCH (16:46)
[2024-09-13 20:00] VITALS: BP 95/57; PULSE 59; RESP 16; TEMP 36.2; O2SAT 99
[2024-09-14] VITALS (10 sets, daily range): BP systolic 80–124; BP diastolic 57–99; PULSE 82–101; RESP 13–22; TEMP 35.8–36.7; O2SAT 93–100
[2024-09-14 03:37] LABS: POTASSIUM 4.5 mEq/L (3.5-5.1)
[2024-09-14 07:22] LABS: BASOPHILS % 0.2 % (0.0-2.0); DIFFERENTIAL COMMENT 0; EOSINOPHILS % 0.3 % (0.0-5.0); HEMATOCRIT. 39.8 % (42.0-52.0); HEMOGLOBIN. 12.7 g/dL (14.0-18.0); LYMPHOCYTES % 11.1 % (20.0-50.0); MEAN CORPUSCULAR HEMOGLOBIN 23.4 pg (28.0-32.0); MEAN CORPUSCULAR HGB CONC 31.9 g/dL (31.0-37.0); MEAN CORPUSCULAR VOLUME 73.5 fL (80.0-94.0); MEAN PLATELET VOLUME 9.4 fl (7.4-10.4); MONOCYTES % 12.3 % (2.0-8.0); NEUTROPHILS % 76.1 % (40.0-76.0); PLATELET 216 x1000/uL (130-400); RED BLOOD CELL COUNT 5.41 mill/uL (4.7-6.1); RED CELL DISTRIBUTION WIDTH 17.2 % (11.6-14.6); WHITE BLOOD COUNT 6.8 x1000/uL (4.5-11.0)
[2024-09-14 07:50] LABS: POTASSIUM 4.4 mEq/L (3.5-5.1)
[2024-09-14 07:51] LABS: CALCIUM 8.3 mg/dL (8.7-10.4)
[2024-09-14 07:56] LABS: CREATININE 1.8 mg/dL (0.6-1.3)
[2024-09-14] MEDS: VANCOMYCIN 1G PREMIX 200 ML IV SCH (08:31)
[2024-09-14] MEDS: HYDROCODONE/ACETAMINOPHEN 5/325MG TABLET PO PRN (08:33)
[2024-09-14] MEDS: MIDODRINE HCL 5MG TABLET PO SCH ×2 (11:06→16:22)
[2024-09-14] MEDS: SODIUM CHLORIDE 0.9% 250 ML IV ONE (11:10)
[2024-09-14 12:51] LABS: BG BASE EXCESS -0.5 mmol/L (-2.0-3.0); BG CARBOXYHEMOGLOBIN 1.4 % (0.5-1.5); BG DEOXYHEMOGLOBIN 5.3 % (0.0-5.0); BG FRACTION INSPIRED OXYGEN 21; BG HCO3 ACT 24.9 mmol/L (21.0-28.0); BG METHEMOGLOBIN 0.3 % (0.5-1.5); BG OXYGEN SATURATION 94.6 % (94.0-98.0); BG PCO2 43.4 mmHg (35.0-48.0); BG PH 7.376 (7.350-7.450); BG PO2 72.8 mmHg (83.0-108.0); BG SAMPLE SITE RIGHT RADIAL; BG TOTAL HEMOGLOBIN 12.9 g/dL (13.5-17.5); BG VENT MODE ROOM AIR
[2024-09-14] MEDS ORDERED: NOREPINEPHRINE 8 MG in DEXT 5% WATER 242 ML IV PRN (13:30)
[2024-09-14] MEDS ORDERED: ASPI-1160 PO (13:40)
[2024-09-14] MEDS ORDERED: HUM100IN SQ ×2 (13:44→13:45)
[2024-09-14] MEDS ORDERED: CARV6.2548 PO (13:52)
[2024-09-14] MEDS ORDERED: METO-396 PO (13:53)
[2024-09-14] MEDS ORDERED: ERGO200D (14:02)
[2024-09-14 15:04] LABS: AMMONIA < 17 uMol/L (<32)
[2024-09-14] MEDS ORDERED: DEXTROSE 50% WATER 50ML SYRINGE IV PRN (22:00)
[2024-09-15] VITALS (11 sets, daily range): BP systolic 97–127; BP diastolic 60–105; PULSE 83–95; RESP 15–23; TEMP 36.1–36.7; O2SAT 92–96
[2024-09-15 07:02] LABS: POTASSIUM 4.1 mEq/L (3.5-5.1)
[2024-09-15 07:04] LABS: CALCIUM 8.1 mg/dL (8.7-10.4)
[2024-09-15 07:08] LABS: CREATININE 1.7 mg/dL (0.6-1.3)
[2024-09-15] MEDS: INSULIN LISPRO 100 UNITS/ML SUBCUT SCH (08:00)
[2024-09-15 08:03] LABS: BASOPHILS % 0.3 % (0.0-2.0); DIFFERENTIAL COMMENT 0; EOSINOPHILS % 0.4 % (0.0-5.0); HEMATOCRIT. 39.1 % (42.0-52.0); HEMOGLOBIN. 12.5 g/dL (14.0-18.0); LYMPHOCYTES % 11.8 % (20.0-50.0); MEAN CORPUSCULAR HEMOGLOBIN 23.4 pg (28.0-32.0); MEAN CORPUSCULAR HGB CONC 31.9 g/dL (31.0-37.0); MEAN CORPUSCULAR VOLUME 73.3 fL (80.0-94.0); MEAN PLATELET VOLUME 9.9 fl (7.4-10.4); MONOCYTES % 13.9 % (2.0-8.0); NEUTROPHILS % 73.6 % (40.0-76.0); PLATELET 224 x1000/uL (130-400); RED BLOOD CELL COUNT 5.34 mill/uL (4.7-6.1); RED CELL DISTRIBUTION WIDTH 16.8 % (11.6-14.6); WHITE BLOOD COUNT 6.8 x1000/uL (4.5-11.0)
[2024-09-15] MEDS: BLOOD SUGAR DIAGNOSTIC STRIP TEST SCH (08:05)
[2024-09-15] MEDS: FAMOTIDINE 20MG/2ML VIAL IV SCH (09:02)
[2024-09-15] MEDS ORDERED: CEPH500C2 MT (10:27)
[2024-09-15] MEDS ORDERED: MIDO5TAB4 MT (10:27)
[2024-09-15 14:25] LABS: CLARITY URINE CLEAR (CLEAR); COLOR URINE YELLOW (YELLOW); GLUCOSE URINE NEGATIVE (NEGATIVE); KETONES URINE NEGATIVE (NEGATIVE); LEUKOCYTE ESTERASE URINE NEGATIVE (NEGATIVE); NITRITE URINE NEGATIVE (NEGATIVE); OCCULT BLOOD URINE TRACE (NEGATIVE); PH URINE 5.5 (4.5-8.0); PROTEIN URINE NEGATIVE (NEGATIVE); SPECIFIC GRAVITY URINE 1.013 (1.005-1.030); UROBILINOGEN URINE 0.2 E.U./dL (0.2-1.0)
[2024-09-15 14:45] LABS: BACTERIA URINE FEW; RBC URINE 0-2 /hpf (0-2); SQUAMOUS EPITHELIAL CELL URINE NONE SEEN /lpf (RARE/1+); YEAST URINE FEW
[2024-09-17] MEDS ORDERED: FURO40TA5 PO (07:25)
[2024-09-17] MEDS ORDERED: RIVA20TA PO (08:23)
== END 2024-09-15 21:00 | disposition home health service (06) | DRG 432 ==
LOC: ER 06:19 → 5WST 08:48 → EDBEDREQTM 08:49 → EDBEDREQ 08:49 → 5EST 09-14 01:08
PROVIDERS: ADMIT Internal Medicine; ATTEND Internal Medicine
PROC: 0W9G30Z Drainage of Peritoneal Cavity with Drainage Device, Percutaneous Approach (ICD-10-PCS; principal; 2024-09-12)
DX: K74.60 Unspecified cirrhosis of liver (principal); I50.23 Acute on chronic systolic (congestive) heart failure; I13.0 Hypertensive heart and chronic kidney disease with heart failure and stage 1 through stage 4 chronic kidney disease, or unspecified chronic kidney disease; R18.8 Other ascites; I42.0 Dilated cardiomyopathy; N18.9 Chronic kidney disease, unspecified; Z20.822 Contact with and (suspected) exposure to COVID-19; E11.22 Type 2 diabetes mellitus with diabetic chronic kidney disease; E78.5 Hyperlipidemia, unspecified; I48.0 Paroxysmal atrial fibrillation; N40.0 Benign prostatic hyperplasia without lower urinary tract symptoms; Z95.818 Presence of other cardiac implants and grafts; Z79.01 Long term (current) use of anticoagulants
CPT/HCPCS: 36415; 36600; 49083; 71045; 80048; 80076; 80202; 81003; 82140; 82375; 82805; 82962; 83036; 83605; 83735; 84132; 84145; 85025; 87075; 87426; 87804; 93005; 93306; 93970; 99291; A4606; J0696; J1815; J1940; J2003; J2470; J2543; J3370; J3490; J7030; P9041